=== PATIENT | male | born 1980 | race Caucasian/White ===

== ENCOUNTER 2023-09-29 17:21 | Outpatient (CLI) | payer BC, SELFPAY | END 2023-09-29 17:22 | disposition home or self-care (01) | PROVIDERS: PCP Nurse Practitioner Family; Visit Provider Nurse Practitioner Family | DX: Z13.220 Encounter for screening for lipoid disorders (principal); I10 Essential (primary) hypertension; E66.9 Obesity, unspecified | CPT/HCPCS: 80053; 80061 ==

== ENCOUNTER 2024-02-01 19:06 | Outpatient (CLI) | payer BC, SELFPAY ==
--- NOTE | 2024-02-15 13:43 | W.PM.SLEEP ---
Sleep Study Details Details Interpreting Provider: Latrice Date of Sleep Study: 02/01/24 Sleep Study Details: STUDY TYPE:? Home unattended ? BMI:? 55.4 ORDERING PROVIDER:? Latrice INDICATION:? Concern about sleep apnea ? SLEEP SUMMARY:? 502 minutes monitored RESPIRATORY SUMMARY:? AHI 37.3, left lateral 63.7, prone 31.3, right lateral 79.4 Low oxygen 78 22% of study oxygen less than 90% Snoring 92.9% PERIODIC LIMB MOVEMENTS OF SLEEP:? Not recorded CARDIAC:? Range 68-111, mean 83 beats per minute IMPRESSION:? Severe obstructive sleep apnea RECOMMENDATION: Treatment options include AutoSet CPAP. In-lab titration would be recommended given his weight and hypo oxygenation. However he did not have any significant central apnea. He may end up requiring bilevel therapy
== END 2024-02-01 19:07 | disposition home or self-care (01) ==
PROVIDERS: PCP Nurse Practitioner Family; Visit Provider Nurse Practitioner Family
DX: G47.33 Obstructive sleep apnea (adult) (pediatric) (principal)
CPT/HCPCS: 95806